=== PATIENT | female | born 1985 | race Caucasian/White ===

== ENCOUNTER 2019-08-09 15:47 | Inpatient (IN) | payer OTHER ==
[~2019-08-09 15:47] MED LIST: Bupivacaine 0.25% HCL 30 ML VIAL ONE; Bupivacaine/Epinephrine 0.25% 30 ML VIAL ONE; Lidocaine 2% MPF 10 ML AMP (For Epidural Use) ONE; PROPOFOL 200 MG/20 ML VIAL ONE; Succinylcholine Chloride 20 MG/ML 10 ml SYRINGE FS ONE
[2019-08-09 16:18] VITALS: BMI 40.9
[2019-08-09] MEDS ORDERED: NS / Oxytocin 40 units/1000ml 1,000 ML IV PRN (17:01)
[2019-08-09] MEDS ORDERED: Promethazine HCl 25 MG/ML VIAL IM PRN (17:01)
[2019-08-09] MEDS ORDERED: Ibuprofen 800 MG TAB PO PRN (17:01)
[2019-08-09] MEDS ORDERED: Butorphanol Tartrate 1 MG/ML VIAL SLOW IVP PRN (17:01)
[2019-08-09] MEDS ORDERED: Acetaminophen 500 MG TAB PO PRN (17:01)
[2019-08-09] MEDS ORDERED: HYDROcodone/Acetaminophen 5/325 mg Tablet PO PRN (17:01)
[2019-08-09] MEDS ORDERED: Misoprostol 200 MCG TAB PR PRN (17:01)
[2019-08-09] MEDS ORDERED: Methylergonovine 0.2 MG/ML VIAL IM PRN (17:01)
[2019-08-09] MEDS ORDERED: Diphenoxylate HCl/Atropine Tablet PO PRN (17:01)
[2019-08-09] MEDS ORDERED: hydrALAZINE 20 MG/ML VIAL SLOW IVP PRN (17:01)
[2019-08-09] MEDS ORDERED: Carboprost 250 MCG/ML AMP IM PRN (17:01)
[2019-08-09] MEDS ORDERED: Lidocaine 1% (PF) 30 ML VIAL SC PRN (17:01)
[2019-08-09] MEDS: Lactated Ringer's 1,000 ML IV SCH ×2 (17:25→21:19)
[2019-08-09] MEDS: Misoprostol 100 MCG TAB VAG SCH ×2 (17:25→21:16)
[2019-08-09 17:30] LABS: Mean Corpuscular HGB CONC 36.1 g/dL (32.0-36.0); Mean Corpuscular Hemoglobin 33.4 pg (27.0-31.0); Mean Corpuscular Volume 92.6 fL (78.0-98.0); Mean Platelet Volume 9.8 fL (7.4-10.4); Platelet Count 182 thou/uL (130-400); RBC Distribution Width 11.7 % (11.5-14.5); Red Blood Cell (RBC) Count 4.19 mill/uL (4.20-5.40)
[2019-08-09 17:31] LABS: Bacteria/HPF 3+ HPF (None Seen); Bilirubin Negative (Negative); Blood, Urine 1+ (Negative); Clarity Turbid (Clear); Glucose, Urine (Dipstick) Normal (Negative); Leukocyte 250 Leu/uL (Negative); Nitrite Negative (Negative); Protein, Urine (Dipstick) 50 mg/dL (Neg-Trace); Urobilinogen Normal mg/dL (Less than 2)
[2019-08-09 18:09] LABS: HBSAg Index 0.18 S/CO (0-0.99); Hep B Surf Ag Non-Reactive S/CO (NonReactive); Syphilis Antibody Nonreactive (Nonreactive); Syphilis Antibody Index 0.03 S/CO (<1.00 Non-Reactive)
[2019-08-09 18:21] LABS: ALT (SGPT) 21 U/L (8-55); AST (SGOT) 21 U/L (5-34); Albumin 3.5 g/dL (3.5-5.0); Alkaline Phosphatase 186 U/L (40-110); Anion Gap 17 mmol/L (10-20); BUN (Urea Nitrogen) 14 mg/dL (7.0-18.7); Bilirubin, Total 0.5 mg/dL (0.2-1.2); Calc. Creatinine Clearance 179 mL/min (70-130); Calcium 9.6 mg/dL (7.8-10.44); Carbon Dioxide 21 mmol/L (22-29); Chloride 105 mmol/L (98-107); Estimated GFR-MDRD Greater than 90; Globulin 2.8 g/dL (2.4-3.5); Glucose 108 mg/dL (70-105); Potassium 3.8 mmol/L (3.5-5.1); Protein, Total 6.3 g/dL (6.0-8.3); Sodium 139 mmol/L (136-145)
[2019-08-10] MEDS: Misoprostol 100 MCG TAB VAG SCH ×4 (03:50→15:27)
[2019-08-10] MEDS: Ondansetron PF 4 MG/2 ML Vial IVP PRN ×2 (05:45→19:39)
[2019-08-10] MEDS: NS w/ Oxytocin 10 units 500 ML IV SCH ×2 (06:08→21:33)
[2019-08-10] MEDS: Lactated Ringer's 1,000 ML IV SCH ×2 (08:44→22:28)
--- NOTE | 2019-08-10 09:22 | PDOC.LDHP ---
Labor and Delivery H&P Chief complaint: scheduled induction, other (Elevated blood pressure at 39w) HPI: 33yo at 39w0d by LMP here for IOL 2/2 PEC based on elevated blood pressures and proteinuria. No sx PIH, overnight had 2 cytotecs. feels constant pressure, s/p stadol x 1 Current gestational age (weeks): 39 Due date: 08/17/19 Dating criteria: last menstrual period Grav: 1 Para: 0 Current complications: preeclampsia without severe features Abnormal US findings: Yes (LGA, borderline polyhydramnios) Past Medical History: none Current medications: pre- vitamins Previous surgical history: none Allergies/Adverse Reactions: Allergies Allergy/AdvReac Type Severity Reaction Status Date / Time No Known Allergies Allergy Unverified 08/09/19 16:15 Social history: none - Physical Exam Vital signs reviewed and normal: yes Abnormal vital signs: occ mild range BP General: NAD Heart: RRR Lungs: CTAB Abdomen: gravid Extremeties: no edema FHT: category 1 [place] contractions every: 2-4min - Vaginal Exam cm dilated: 4 Effacement: 50% Station: -2 (AROM clear) - OB Labs Blood type: O RH: negative Antibody Screen: negative HIV: negative RPR: negative HEPSAg: negative 1 hour GCT: negative GBS: negative Urine drug screen: negative Rubella: immune - Assessment L&D Assessment: medically indicated induction - Plan Plan: admit to L&D, cervical ripening, labor augmentation if indicated, informed consent obtained, anesthesia consult for pain management -: Nl labs, No sx PIH, Mag for severe features.
[2019-08-10] MEDS ORDERED: Fentanyl 4 mcg/Bup 0.1% Cadd 100 ML ONE ×3 (10:09→23:35)
[2019-08-10] MEDS ORDERED: ePHEDrine/0.9% NaCl/PF SYRINGE 50 mg/10 ml SLOW IVP PRN (11:44)
[2019-08-10] MEDS ORDERED: diphenhydrAMINE 50 MG/ML VIAL IVP PRN (11:44)
[2019-08-10] MEDS ORDERED: Promethazine HCl 25 MG/ML VIAL IM PRN (11:44)
[2019-08-10] MEDS ORDERED: Ondansetron PF 4 MG/2 ML Vial IVP PRN (11:44)
[2019-08-10] MEDS ORDERED: Lactated Ringer's 500 ML IV PRN (11:44)
[2019-08-10] MEDS ORDERED: Naloxone HCl 0.4 mg/ml Vial IVP PRN ×2 (11:44)
[2019-08-10] MEDS ORDERED: Communication Order-Pharmacy FS SCH (11:45)
[2019-08-10] MEDS: Fentanyl 4 mcg/Bupivacaine 0.1% Cassette 100 ML EPIDURAL SCH ×2 (16:55→23:36)
--- NOTE | 2019-08-10 16:59 | PDOC.LDPN ---
Labor & Delivery Progress Note - Subjective Subjective: vaginal pressure - Objective Vital signs reviewed and normal: yes General: NAD Uterine fundus: non tender Dilation: 6 Effacement: 90% Station: 0 FHT: category 1 [place] contractions every: 2-5min IUPC placed: yes Plan: pitocin for augmentation
[2019-08-10] MEDS ORDERED: hydrALAZINE 20 MG/ML VIAL SLOW IVP PRN (23:05)
[2019-08-10] MEDS ORDERED: Calcium Gluc 4.6 MEQ/10 ML (100 MG/ML) SLOW IVP PRN (23:07)
[2019-08-10] MEDS ORDERED: Magnesium Sulfate 20 GM/WATER 500 ML BAG IVPB SCH (23:15)
[2019-08-10] MEDS ORDERED: Magnesium Sulfate 20 gm/500 ml 20 GM/500 ML BAG IVPB SCH (23:30)
[2019-08-10 23:49] LABS: Hemoglobin 15.4 g/dL (12.0-16.0); Mean Corpuscular HGB CONC 34.7 g/dL (32.0-36.0); Mean Platelet Volume 10.1 fL (7.4-10.4); Platelet Count 152 thou/uL (130-400); RBC Distribution Width 11.8 % (11.5-14.5); Red Blood Cell (RBC) Count 4.67 mill/uL (4.20-5.40); White Blood Cell (WBC) Count 21.7 thou/uL (4.8-10.8)
[2019-08-11 00:05] LABS: Band 10 % (5-11); Lymphocytes 3 % (21-51); MDiff Complete? YES; Monocytes 6 % (0-10); Myelocyte 2 % (0-0); Neutrophil 79 % (42-75)
[2019-08-11 01:08] LABS: ALT (SGPT) 22 U/L (8-55); AST (SGOT) 27 U/L (5-34); Albumin 3.2 g/dL (3.5-5.0); Alkaline Phosphatase 179 U/L (40-110); Anion Gap 18 mmol/L (10-20); BUN (Urea Nitrogen) 22 mg/dL (7.0-18.7); Bilirubin, Total 0.8 mg/dL (0.2-1.2); Calc. Creatinine Clearance 116 mL/min (70-130); Calcium 8.6 mg/dL (7.8-10.44); Carbon Dioxide 15 mmol/L (22-29); Chloride 104 mmol/L (98-107); Estimated GFR-MDRD 56; Globulin 3.6 g/dL (2.4-3.5); Glucose 113 mg/dL (70-105); Protein, Total 6.8 g/dL (6.0-8.3); Sodium 133 mmol/L (136-145)
[2019-08-11] MEDS ORDERED: Azithromycin 500 MG VIAL ONE (03:57)
[2019-08-11] MEDS ORDERED: Lidocaine 2% 10 ML INJ ONE (04:19)
[2019-08-11] MEDS ORDERED: MORPHINE 5 MG/10 ML PF VIAL ONE (04:24)
[2019-08-11] MEDS ORDERED: Oxytocin 10 UNITS/ML VIAL ONE (04:25)
--- NOTE | 2019-08-11 04:32 | PDOC.LDPN ---
Labor & Delivery Progress Note - Subjective Subjective: painful contractions, vaginal pressure - Objective Abnormal vital signs: severe range blood pressures, tachycardic, minimal UOP last 2 hours General: NAD Uterine fundus: non tender Dilation: 9 Effacement: 90% Station: 1+ (significant caput and molding) FHT: category 1 [place] contractions every: 5min -: Pt arrested now for 6hr with inadequate adequate uterine contractions. Also intervally has developed severe range blood pressures, oliguria and bumped creatinine to 1.13. Pt is on Mag renally dosed at 1gm/hr. Dispo for PCS due to arrest of dilation at 9cm. Cont Mag. FHR reassuring. Risks and benefits discussed. Pt agrees to proceed. Recheck labs in recovery, monitor Mag levels q 6h. s/p hydralazine, BP mild range currently, no sx PIH.
[2019-08-11] MEDS ORDERED: Bupivacaine PF 0.5% 30 ML VIAL ONE (04:45)
[2019-08-11] MEDS ORDERED: Bicitra 30 ML UDCUP PO SCH (05:00)
[2019-08-11] MEDS ORDERED: CEFAZOLIN 2 GM in Premix Bag 1 BAG IVPB SCH (05:00)
[2019-08-11] MEDS ORDERED: Azithromycin 500 MG in Sodium Chloride 0.9% 250 ML 250 ML IVPB SCH (05:00)
[2019-08-11 05:29] LABS: pH (Cord, venous) 7.29 (7.32-7.43)
[2019-08-11] MEDS ORDERED: HYDROmorphone 2 MG/ML VIAL SLOW IVP PRN (05:33)
[2019-08-11] MEDS ORDERED: Ketorolac Tromethamine 30 MG/ML VIAL IVP PRN (05:33)
[2019-08-11] MEDS ORDERED: Meperidine HCl/PF 25 MG/ML VIAL SLOW IVP PRN (05:33)
[2019-08-11] MEDS ORDERED: Promethazine HCl 25 MG SUPP PR PRN (05:33)
[2019-08-11] MEDS ORDERED: Naloxone HCl 0.4 mg/ml Vial IV PRN (05:33)
[2019-08-11] MEDS ORDERED: diphenhydrAMINE 50 MG/ML VIAL IVP PRN (05:33)
[2019-08-11] MEDS ORDERED: L&D-Morphine 4 MG/ML VIAL SLOW IVP PRN (05:33)
[2019-08-11] MEDS ORDERED: Ondansetron HCl/PF 4 MG/2 ML Vial IVP PRN (05:33)
[2019-08-11] MEDS ORDERED: Promethazine HCl 25 MG/ML VIAL IM PRN ×2 (05:33→08:06)
[2019-08-11] MEDS ORDERED: Naloxone HCl 0.4 mg/ml Vial IVP PRN ×2 (05:33)
[2019-08-11] MEDS ORDERED: Ondansetron PF 4 MG/2 ML Vial IVP PRN ×2 (05:33→08:06)
[2019-08-11] MEDS ORDERED: Communication Order-Pharmacy FS SCH (05:45)
[2019-08-11] MEDS ORDERED: Ketorolac Tromethamine 30 MG/ML VIAL IVP SCH (05:45)
[2019-08-11] MEDS ORDERED: Ondansetron PF 4 MG/2 ML Vial ONE ×2 (05:48→11:57)
[2019-08-11] MEDS ORDERED: Ketorolac Tromethamine 30 MG/ML VIAL ONE ×2 (05:49→11:57)
[2019-08-11] MEDS ORDERED: Dexamethasone 4 mg/ml Vial ONE (05:49)
--- NOTE | 2019-08-11 05:55 | PDOC.OPDEL ---
OB Operative/Delivery Note Delivery Dr/Surgeon: Joie Assist: Sathish Pre-Delivery Diagnosis: arrest of dilation Procedure/Post Delivery Dx: primary low transverse CS Weeks gestation: 39 Anesthesia: other (GETA) - Findings A Sex: male Weight: 8 lb 1 oz - 1 min: 8 - 5 min: 9 - Additional Findings/Plan Placenta delivered: spontaneous findings: low transverse hysterotomy without extension, normal uterus, normal tubes, normal ovaries Estimated blood loss: 400cc Compilations/Other Findings: OP presentation, significant caput and molding, wedged in pelvis Post delivery plan: routine recovery
--- NOTE | 2019-08-11 06:43 | OP ---
DATE OF PROCEDURE: 08/11/2019 This note functions as documentation when I was presser first on a primary for patient, Cristiane Schulte. Primary surgeon is Dr. Juliana Salter. Please see her operative note for complete details. Job ID: [id number]
[2019-08-11] MEDS ORDERED: HYDROcodone/Acetaminophen 5/325 mg Tablet PO PRN ×2 (08:06)
[2019-08-11] MEDS ORDERED: hydrALAZINE 20 MG/ML VIAL SLOW IVP PRN (08:06)
[2019-08-11] MEDS ORDERED: Adacel (T-DAP) 0.5 ML SYRINGE IM ONE (08:06)
[2019-08-11] MEDS ORDERED: diphenhydrAMINE 25 MG CAP PO PRN (08:06)
[2019-08-11] MEDS ORDERED: Bisacodyl 10 MG SUPP PR PRN (08:06)
[2019-08-11] MEDS ORDERED: Simethicone Chewable 80 MG TAB PO PRN (08:06)
[2019-08-11] MEDS: Prenatal Vitamin 1 TAB PO SCH (08:19)
[2019-08-11 09:00] LABS: Anion Gap 14 mmol/L (10-20); BUN (Urea Nitrogen) 21 mg/dL (7.0-18.7); Calc. Creatinine Clearance 114 mL/min (70-130); Calcium 8.4 mg/dL (7.8-10.44); Carbon Dioxide 19 mmol/L (22-29); Chloride 103 mmol/L (98-107); Estimated GFR-MDRD 55; Glucose 140 mg/dL (70-105); Magnesium 3.9 mg/dL (1.6-2.6); Potassium 3.8 mmol/L (3.5-5.1); Sodium 132 mmol/L (136-145)
[2019-08-11] MEDS: Docusate Calcium (SURFAK) 240 MG CAP PO SCH ×2 (09:59→22:43)
--- NOTE | 2019-08-11 11:45 | OP ---
DATE OF PROCEDURE: 08/11/2019 PREOPERATIVE DIAGNOSES: 1. Intrauterine at 39 weeks one day. 2. Arrest of dilation at 9 cm. 3. Preeclampsia with severe features. POSTOPERATIVE DIAGNOSES: 1. Intrauterine at 39 weeks one day. 2. Arrest of dilation at 9 cm. 3. Preeclampsia with severe features. PROCEDURE PERFORMED: Primary low-transverse section via Pfannenstiel skin incision. ANESTHESIA: General endotracheal. DIRECTOR BIOINFORMATICS SURGEON: Mello Bower MD. ESTIMATED BLOOD LOSS: 400 mL. COMPLICATIONS: None. DRAINS: Portillo catheter. PATHOLOGY: None. FINDINGS: Male infant, cephalic OP presentation, clear amniotic fluid, obstructing bladder. Apgars 8 and 9. Weight 8 pounds 1 ounce. Significant caput and molding. The delivery of the fetus allowed urine to drain into the Portillo catheter that was claudia. The patient previously not had any urine output for the last 2 hours. Hysterotomy without extension. Normal uterus, ovaries, and tubes bilaterally. OPERATIVE TECHNIQUE: The patient was taken to the operating room, where epidural anesthesia was found to be inadequate. The patient was induced under general anesthesia and a Pfannenstiel skin incision was made with a knife and carried down to the underlying subcutaneous tissue with a knife. The fascia was nicked in the midline with a knife and carried laterally with the Alexandre scissors. The superior aspect of the fascia was tented with 2 Mauricio's and dissected off the rectus with the Alexandre scissors. The inferior aspect of the fascia was tented with 2 Mauricio's and dissected off the rectus with the Alexandre down to the pubic symphysis. The peritoneum was bluntly entered into and manually retracted. The Nick O retractor was placed. The vesicouterine peritoneum was incised with the Metzenbaum and a bladder flap was created. The lower uterine segment was incised in a transverse fashion and extended with a Sheppard maneuver. The infant's head was brought to the hysterotomy and delivered after suction was relieved and body was delivered with fundal pressure. Delayed cord clamping was performed. The infant's cord was clamped and handed to awaiting Kemal team. Cord gas and cord blood were obtained. The placenta was allowed to spontaneously deliver and the fundus was firm. The hysterotomy was repaired with a #1 Monocryl in a running locking fashion x2 sutures with excellent hemostasis noted. The pelvis was copiously irrigated and suctioned and again hemostasis was noted. The Nick O retractor was removed. The rectus muscles were examined and noted to be hemostatic. The fascia was reapproximated with a 0 PDS x2 sutures with excellent reapproximation. The subcutaneous tissue was irrigated and cauterized of any bleeders and reapproximated with a 2-0 plain gut in a running fashion x2 layers. The skin was closed with 4-0 Monocryl in a subcuticular fashion. Dermabond was applied. The patient tolerated the procedure well. Sponge, lap, needle counts were correct x2. The patient was taken to recovery room in stable condition. The patient received Ancef 2 g and azithromycin 500 mg prior to the procedure and will be for Mag recovery. Job ID: [id number]
[2019-08-11] MEDS ORDERED: Dexamethasone 20 MG/5 ML VIAL ONE (11:57)
[2019-08-11] MEDS ORDERED: Lidocaine 2% PF 5 ML VIAL ONE (11:57)
[2019-08-11] MEDS ORDERED: PROPOFOL 200 MG/20 ML VIAL ONE (11:57)
[2019-08-11] MEDS ORDERED: Succinylcholine Chloride 20 MG/ML 10 ml SYRINGE FS ONE (11:57)
[2019-08-11] MEDS: Ferrous Sulfate 325 MG TAB PO SCH ×2 (17:42→17:47)
[2019-08-11] MEDS: Loratadine 10 MG TAB PO PRN (22:23)
[2019-08-12] MEDS: Lactated Ringer's 1,000 ML IV SCH (01:48)
[2019-08-12] MEDS: Acetaminophen 325 MG TAB PO PRN ×2 (01:49→21:57)
[2019-08-12 07:16] LABS: Hemoglobin 12.4 g/dL (12.0-16.0); Mean Corpuscular HGB CONC 35.5 g/dL (32.0-36.0); Mean Platelet Volume 9.4 fL (7.4-10.4); Platelet Count 190 thou/uL (130-400); RBC Distribution Width 11.9 % (11.5-14.5); Red Blood Cell (RBC) Count 3.75 mill/uL (4.20-5.40); White Blood Cell (WBC) Count 19.3 thou/uL (4.8-10.8)
[2019-08-12] MEDS ORDERED: Cepastat Lozenges 1 LOZ PO PRN (08:05)
[2019-08-12] MEDS ORDERED: Dextromethorphan Polistirex 30 MG/5 ML (89 ML BOTTLE) PO PRN (08:05)
--- NOTE | 2019-08-12 08:09 | PDOC.PP ---
Post Progress Note Post Day #: 1 PO intake tolerated: yes Flatus: yes Ambulation: yes Vital Signs (12 hours) Temp Pulse Resp BP Pulse Ox 08/12/19 06:40 98.1 F 91 18 116/85 97 Weight Weight 224 lb - Physical Examination General: NAD Respiratory: clear to auscultation bilaterally, non-labored breathing Abdominal: no distention, appropriately TTP Fundus firm & at: umb Extremities: negative homans (B) Skin: CS incision dry & intact Neurological: no gross focal deficits Psychiatric: normal affect Result Diagrams: 08/12/19 07:00 08/11/19 08:37 Additional Labs: Post Labs Blood Type O NEGATIVE 08/09/19 17:51 Hep Bs Antigen Non-Reactive S/CO (NonReactive) 08/09/19 17:14 - Assessment/Plan POD1 s/p PCS for arrest at 9cm. VSSAF PEC with severe features- UOP improved, BP nl-mild, no sx PIH, recheck creat today. Routine postop advances Cough- prn meds written for Rh neg, RImm Cont postop care.
[2019-08-12] MEDS: Prenatal Vitamin 1 TAB PO SCH (08:14)
[2019-08-12] MEDS: Docusate Calcium (SURFAK) 240 MG CAP PO SCH ×2 (08:15→21:51)
[2019-08-12 08:50] LABS: Anion Gap 10 mmol/L (10-20); BUN (Urea Nitrogen) 19 mg/dL (7.0-18.7); Calc. Creatinine Clearance 159 mL/min (70-130); Calcium 7.7 mg/dL (7.8-10.44); Carbon Dioxide 21 mmol/L (22-29); Chloride 106 mmol/L (98-107); Estimated GFR-MDRD 81; Glucose 81 mg/dL (70-105); Potassium 3.7 mmol/L (3.5-5.1); Sodium 133 mmol/L (136-145)
[2019-08-12] MEDS: Ibuprofen 600 MG TAB PO SCH ×2 (09:16→17:23)
[2019-08-12] MEDS: Loratadine 10 MG TAB PO PRN (09:17)
[2019-08-12] MEDS: Ferrous Sulfate 325 MG TAB PO SCH ×2 (09:48→16:52)
[2019-08-12] MEDS: guaiFENesin ER 600 MG TAB PO PRN (21:57)
[2019-08-13] MEDS: Ibuprofen 600 MG TAB PO SCH ×3 (00:36→17:11)
[2019-08-13] MEDS: Misoprostol 100 MCG TAB VAG SCH ×2 (07:43→07:44)
--- NOTE | 2019-08-13 08:03 | PDOC.PP ---
Post Progress Note Post Day #: 2 PO intake tolerated: yes Flatus: yes Ambulation: yes Weight Weight 224 lb - Physical Examination General: NAD Respiratory: clear to auscultation bilaterally, non-labored breathing Abdominal: no distention, appropriately TTP Fundus firm & at: umb Extremities: negative homans (B) Skin: CS incision dry & intact Neurological: no gross focal deficits Psychiatric: normal affect Result Diagrams: 08/12/19 07:00 08/12/19 08:19 Additional Labs: Post Labs Blood Type O NEGATIVE 08/09/19 17:51 Hep Bs Antigen Non-Reactive S/CO (NonReactive) 08/09/19 17:14 - Assessment/Plan POD2 s/p PCS for AOD with PEC with severe features VSSAF PEC- BP mostly nl, no sx PIH, s/p Mag, creat normalized, good UOP Met all postop milestones Baby under bili lights Rh neg s/p RHIG, RImm Cont postop care, likely home tomorrow.
[2019-08-13] MEDS: Ferrous Sulfate 325 MG TAB PO SCH ×2 (08:22→14:59)
[2019-08-13] MEDS: Docusate Calcium (SURFAK) 240 MG CAP PO SCH ×2 (08:22→21:50)
[2019-08-13] MEDS: Prenatal Vitamin 1 TAB PO SCH (08:22)
[2019-08-14] MEDS: Ibuprofen 600 MG TAB PO SCH ×2 (01:32→10:04)
[2019-08-14] MEDS: guaiFENesin ER 600 MG TAB PO PRN (04:41)
--- NOTE | 2019-08-14 06:37 | PDOC.PP ---
Post Progress Note Post Day #: 3 Subjective: Ms. Schulte feels well this morning. She is tolerating PO intake well and feels ready to go home. PO intake tolerated: yes Flatus: yes Ambulation: yes Vital Signs (12 hours) Temp Pulse Resp BP Pulse Ox 08/14/19 04:20 97.8 F 80 18 140/84 08/14/19 01:30 98.1 F 80 16 144/78 H 08/13/19 20:07 97.7 F 79 16 136/83 98 08/13/19 19:43 98 Weight Weight 101.605 kg - Physical Examination General: NAD Cardiovascular: no m/r/g, RRR Respiratory: clear to auscultation bilaterally, non-labored breathing Abdominal: + bowel sounds Extremities: negative homans (B) Skin: CS incision dry & intact, no rash Neurological: no gross focal deficits Psychiatric: normal affect Result Diagrams: 08/12/19 07:00 08/12/19 08:19 Additional Labs: Post Labs Blood Type O NEGATIVE 08/09/19 17:51 Hep Bs Antigen Non-Reactive S/CO (NonReactive) 08/09/19 17:14 (1) care following delivery Code(s): Z39.2 - ENCOUNTER FOR ROUTINE FOLLOW-UP Status: Acute (2) Preeclampsia Code(s): O14.90 - UNSPECIFIED PRE-ECLAMPSIA, UNSPECIFIED TRIMESTER Status: Acute - Assessment/Plan POD #3 s/p PCS for AOD with PEC with severe features PEC- BP mostly nl, no sx PIH, s/p Mag, creat normalized, good UOP Met all postop milestones Baby's hyperbilirubinemia improved Rh neg s/p RHIG, RImm Plan for discharge to day. Has appt with Dr. Salter in 2 weeks. patient sen by me. Agree
[2019-08-14 08:21] VITALS: BP 140/78; TEMP 98.4
[2019-08-14] MEDS ORDERED: FLU VACC QS2019-20(6MOS UP)/PF 60 MCG/0.5 ML SYRINGE IM ONE (09:00)
[2019-08-14] MEDS: Docusate Calcium (SURFAK) 240 MG CAP PO SCH (10:04)
[2019-08-14] MEDS: Prenatal Vitamin 1 TAB PO SCH (10:04)
[2019-08-14] MEDS: Ferrous Sulfate 325 MG TAB PO SCH (10:05)
== END 2019-08-14 12:05 | disposition home or self-care (01) | DRG 788 ==
LOC: L&D 15:47 → 3SW 08-12 06:34
PROVIDERS: ADMIT Student in an Organized Health Care Education/Training Program; ATTEND Student in an Organized Health Care Education/Training Program
PROC: 10907ZC Drainage of Amniotic Fluid, Therapeutic from Products of Conception, Via Natural or Artificial Opening (ICD-10-PCS; principal; 2019-08-11)
PROC: 10D00Z1 Extraction of Products of Conception, Low, Open Approach (ICD-10-PCS; 2019-08-11)
PROC: 3E0P7VZ Introduction of Hormone into Female Reproductive, Via Natural or Artificial Opening (ICD-10-PCS; 2019-08-11)
PROC: 3E033VJ Introduction of Other Hormone into Peripheral Vein, Percutaneous Approach (ICD-10-PCS; 2019-08-11)
PROC: 3E02340 Introduction of Influenza Vaccine into Muscle, Percutaneous Approach (ICD-10-PCS; 2019-08-11)
DX: O14.14 Severe pre-eclampsia complicating childbirth (principal); O62.0 Primary inadequate contractions; O36.63X0 Maternal care for excessive fetal growth, third trimester, not applicable or unspecified; O40.3XX0 Polyhydramnios, third trimester, not applicable or unspecified; Z3A.39 39 weeks gestation of pregnancy; Z37.0 Single live birth; Z23 Encounter for immunization
CPT/HCPCS: 36415; 51702; 80048; 80053; 81001; 81003; 82805; 83735; 85025; 85027; 85461; 86780; 86850; 86870; 86900; 86901; 87340; 90384; 90471; 90686; 96372; G0008; J0360; J0456; J0595; J0690; J1100; J1885; J2001; J2274; J2405; J2590; J2704; J3475; S0020